=== PATIENT | female | born 1995 | race Two or more races ===

== ENCOUNTER 2022-09-09 13:20 | Emergency (ER) | payer MEDICAID ==
[~2022-09-09] VITALS: Ht 170.2 cm; Wt 86.2 kg
[2022-09-09 13:36] VITALS: BP 124/72
[2022-09-09 13:59] LABS: BILIRUBIN,URINE NEGATIVE (NEGATIVE); COLOR,URINE YELLOW (YELLOW); LEUKOCYTE ESTERASE ,URINE 1+ (NEGATIVE); NITRITE, URINE NEGATIVE (NEGATIVE); PROTEIN,URINE NEGATIVE (NEGATIVE); UGLUCOSE NEGATIVE (NEGATIVE); UROBILINOGEN,URINE 0.2 EU/dL (0.2)
[2022-09-09 14:23] LABS: RBC,URINE 0-2 /HPF (0-2); WBC,URINE 21-50 /HPF (0-3)
[2022-09-09 14:24] LABS: BACTERIA,URINE Few /HPF (None Seen); SQUAMOUS EPITHELIAL CELL,UR Many /HPF (None Seen)
[2022-09-09] MEDS ORDERED: CEPHALEXIN MONOHYDRATE 500 MG CAPSULE PO ONE ×2 (15:23→15:30)
[2022-09-09] MEDS ORDERED: CEPH500T PO (15:26)
== END 2022-09-09 15:30 | disposition home or self-care (01) ==
LOC: ER 13:21
DX: N39.0 Urinary tract infection, site not specified (principal)
CPT/HCPCS: 81001; 84703-TC; 87086-TC

== ENCOUNTER 2022-09-22 04:15 | Emergency (ER) | payer MEDICAID, OTHER ==
[~2022-09-22] VITALS: Ht 170.2 cm; Wt 84.4 kg
[~2022-09-22 04:15] MED LIST: CEPH500T PO
--- NOTE | 2022-09-22 04:35 | NUR ---
BIBFAMILY FROM HOME CC OF SORETHROAT X5 DAYS. PAINFUL TO SWALLOW THIS AM. PATIENT IS [id number]. ABLE TO MAKE NEEDS KNOWN. WITH PAIN SCALE OF 8/10. PLACED COMFORTABLY IN RM 19.
[2022-09-22] MEDS ORDERED: DEXAMETHASONE SOD PHOSPHATE 10 MG/ML VIAL ONE (04:42)
--- NOTE | 2022-09-22 04:46 | NUR ---
STREP SWAB DONE AND SENT TO LAB
[2022-09-22] MEDS ORDERED: DEXAMETHASONE SOD PHOSPHATE 10 MG in IV D5W 50 ML IV ONE (05:00)
--- NOTE | 2022-09-22 05:20 | NUR ---
Patient discharged to home in stable condition. Written and verbal after care instructions given. Patient verbalizes understanding of instruction.
[2022-09-22 05:21] VITALS: BP 137/69
== END 2022-09-22 05:22 | disposition home or self-care (01) ==
LOC: ER 04:19
DX: J02.9 Acute pharyngitis, unspecified (principal); Z79.899 Other long term (current) drug therapy
CPT/HCPCS: 99284; 96365; 87880; J1100 ×2; J7060; 86403-TC